=== PATIENT | male | born 1950 | race Native Hawaiian/Other Pacific Islander ===

== ENCOUNTER 2017-07-31 09:07 | Emergency (ER) | payer MEDICARE, BC ==
[~2017-07-31 09:07] MED LIST: CLAR5TAB9 PO; LEVO.075 PO; LIOT25 PO; OMEP20TA93 PO
[2017-07-31 09:10] VITALS: BP 177/83; PULSE 65; RESP 18; TEMP 98.3; O2SAT 95
[2017-07-31 09:18] VITALS: BP_SYST 135; BP_SYST 167; BP_DIAS 51; BP_DIAS 70; RESP 18
[2017-07-31] MEDS ORDERED: SODIUM CHLORIDE 0.9% FLUSH 10 ML FLUSH IVF PRN (09:30)
[2017-07-31 09:42] LABS: AUTOMATED NEUTROPHIL # 3.8 TH/MM3 (1.8-7.7); BASOPHIL # 0.1 TH/MM3 (0-0.2); BASOPHIL % 1.1 % (0.0-2.0); EOSINOPHIL # 0.3 TH/MM3 (0-0.4); EOSINOPHIL % 4.4 % (0.0-4.0); HEMATOCRIT 45.1 % (39.0-51.0); HEMOGLOBIN 15.4 GM/DL (13.0-17.0); LYMPH % 30.4 % (9.0-44.0); LYMPHOCYTE # 2.2 TH/MM3 (1.0-4.8); MEAN CELL VOLUME 96.2 FL (80.0-100.0); MEAN CORPUSCULAR HEMOGLOBIN 32.9 PG (27.0-34.0); MEAN CORPUSCULAR HGB CONC 34.2 % (32.0-36.0); MEAN PLATELET VOLUME 10.2 FL (7.0-11.0); MONO % 9.8 % (0.0-8.0); MONOCYTE # 0.7 TH/MM3 (0-0.9); NEUT % 54.3 % (16.0-70.0); PLATELET COUNT 197 TH/MM3 (150-450); RED BLOOD COUNT 4.69 MIL/MM3 (4.50-5.90); RED CELL DISTRIBUTION WIDTH 13.3 % (11.6-17.2); WHITE BLOOD COUNT 7.1 TH/MM3 (4.0-11.0)
[2017-07-31 09:54] LABS: PROTHROMBIN TIME - PATIENT 10.6 SEC (9.8-11.6)
[2017-07-31 10:01] LABS: ALBUMIN 3.7 GM/DL (3.4-5.0); ALT (GPT) 56 U/L (12-78); AST (GOT) 32 U/L (15-37); BICARBONATE 22.4 MEQ/L (21.0-32.0); BLOOD UREA NITROGEN 10 MG/DL (7-18); CALCIUM 9.1 MG/DL (8.5-10.1); CHLORIDE 107 MEQ/L (98-107); CREATININE 0.99 MG/DL (0.60-1.30); GLOMERULAR FILTRATION RATE 75 ML/MIN (>89); GLUCOSE,RANDOM 112 MG/DL (74-106); SODIUM (NA) 141 MEQ/L (136-145)
[2017-07-31 10:06] LABS: ALKALINE PHOSPHATASE 76 U/L (45-117); TOTAL BILIRUBIN ADULT 0.5 MG/DL (0.2-1.0); TOTAL PROTEIN 7.4 GM/DL (6.4-8.2); TROPONIN I LESS THAN 0.02 NG/ML (0.02-0.05)
--- NOTE | 2017-07-31 10:20 | RADRPT ---
EXAM DATE: 07/31/2017 10:08 AM EDT AGE/SEX: 66 years / Male INDICATIONS: Palpitations. Patient complains of dizziness and of being lightheaded, and also tachyca rdia x 1 week. CLINICAL DATA: This is the patient's initial encounter. Patient reports that signs and symptoms have been present for 1 week and indicates a pain score of 0/10. MEDICAL/SURGICAL HISTORY: Diverticulitis. Colon resection. Bilateral knee surgery. [place] [facility] [place]. . FINDINGS: A single AP view of the chest demonstrates the lungs to be symmetrically aerated without infiltrate. Anatomic detail is somewhat limited due to patient's body habitus, however. Heart size is prominent b ut appears to be well compensated. Degenerative spurring of the dorsal spine CONCLUSION: 1. Compensated cardiomegaly. 2. No obvious infiltrate Electronically signed by: Zoran Jimenez MD 07/31/2017 10:19 AM EDT
--- NOTE | 2017-07-31 10:38 | RADRPT ---
EXAM DATE: 07/31/2017 10:08 AM EDT AGE/SEX: 66 years / Male INDICATIONS: Neck pain, Weakness, lightheaded. CLINICAL DATA: This is the patient's initial encounter. Patient reports that signs and symptoms have been present for 1 week and indicates a pain score of 3/10. MEDICAL/SURGICAL HISTORY: Hypertension. Hypothyroidism. None. RADIATION DOSE: 24.58 CTDI (mGy) COMPARISON: No prior [facility] exams available for comparison. TECHNIQUE: Contiguous axial images were obtained using helical multirow detector technique. The vol umetric data was post-processed with multiplanar reconstruction in oblique axial, sagittal, and coron al planes. Using automated exposure control and adjustment of the mA and/or kV according to patient s ize, radiation dose was kept as low as reasonably achievable to obtain optimal diagnostic quality chencho ges. FINDINGS: Sagittal and coronal reconstruction show severe multilevel degenerative disc disease with marked loss of disc height from C2-3 through C6-7 with bone on bone articulation at C3-4 and C5-6. Slight revers al of the normal lordotic curvature. Despite degenerative changes, the spinal canal appears to be lauren quate throughout. There appear to be small cervical ribs bilaterally. C2-3: The bony spinal canal is normal in size. No evidence of disc bulge or herniation. The neural foramina are bilaterally patent. C3-4: The bony spinal canal is normal in size. No evidence of disc bulge or herniation. The neural foramina are bilaterally patent. C4-5: Uncovertebral ridging encroaches on both neural foramina, right worse than left. This may comp romise the right C5 nerve root. C5-6: Uncovertebral ridging with some encroachment on both neural foramina C6-7: The bony spinal canal is normal in size. No evidence of disc bulge or herniation. The neural foramina are bilaterally patent. C7-T1: The bony spinal canal is normal in size. No evidence of disc bulge or herniation. The neura l foramina are bilaterally patent. CONCLUSION: 1. Severe multilevel degenerative disc disease with bone on bone articulation at C3-4 and C5-6. 2. Despite degenerative changes, the spinal canal appears to be adequate throughout. 3. There is foraminal narrowing rightward at C4-5 and bilaterally at C5-6 due to uncovertebral ridgi ng. May be severe enough to compromise the right C5 and possibly both C6 nerve roots. 4. No acute fracture. There appear to be bilateral small cervical ribs. Electronically signed by: Zoran Jimenez MD 07/31/2017 10:37 AM EDT
--- NOTE | 2017-07-31 10:39 | RADRPT ---
EXAM DATE: 07/31/2017 9:55 AM EDT AGE/SEX: 66 years / Male INDICATIONS: Weakness, lightheaded. CLINICAL DATA: This is the patient's initial encounter. Patient reports that signs and symptoms have been present for 1 week and indicates a pain score of 0/10. MEDICAL/SURGICAL HISTORY: Hypertension. Hypothyroidism. None. RADIATION DOSE: 56.77 CTDI (mGy) COMPARISON: No prior [facility] exams available for comparison. TECHNIQUE: CT of the head without contrast. Using automated exposure control and adjustment of the mA and/or kV according to patient size, radiation dose was kept as low as reasonably achievable to ob tain optimal diagnostic quality images. FINDINGS: Cerebrum: The ventricles are normal for age. Mild symmetric cortical atrophy. Old lacunar type infa rcts in the inferior aspect of the basal ganglia bilaterally No evidence of midline shift, mass lesio n, hemorrhage or acute infarction. No extraaxial fluid collections are seen. Posterior Fossa: The cerebellum and brainstem are intact. The 4th ventricle is midline. The cerebe llopontine angle is unremarkable. Extracranial: The visualized portion of the orbits is intact. Skull: The calvaria is intact. No evidence of skull fracture. CONCLUSION: 1. Chronic changes with some cortical atrophy and old lacunar type infarcts in the base of the basal ganglia bilaterally. 2. Nothing acute. Electronically signed by: Zoran Jimenez MD 07/31/2017 10:38 AM EDT
[2017-07-31] MEDS ORDERED: MECLIZINE HCL 25 MG TAB PO ONE (12:00)
[2017-07-31 12:49] VITALS: O2SAT 99
--- NOTE | 2017-07-31 13:27 | RADRPT ---
EXAM DATE: 07/31/2017 1:12 PM EDT AGE/SEX: 66 years / Male INDICATIONS: Dizziness. CLINICAL DATA: This is the patient's initial encounter. Patient reports that signs and symptoms have been present for 1 week and indicates a pain score of 0/10. MEDICAL/SURGICAL HISTORY: Hypertension. Hypercholesterolemia. Hypothyroidism. . cataract COMPARISON: [facility] – [place] BRAIN W & W/O CONTRAST, 07/31/2017. . TECHNIQUE: 3D [id number] MRA was performed. Source images, multiplanar STS MIP, and 3D volum e MIP reconstructions were reviewed. FINDINGS: Anterior circulation: Internal carotid arteries have a symmetric appearance without significant narro wing. The left A1 segment is smaller than the right with an appearance suggesting a congenital basis. Anterior cerebral arteries are within normal limits. Anterior communicating artery is patent. Middle cerebral arteries are symmetric. No aneurysm or stenosis is visualized. Posterior circulation: The vertebral arteries are codominant. Basilar artery has a normal appearance. No aneurysm is present. Posterior cerebral arteries are symmetric. CONCLUSION: No intracranial vascular abnormality is identified. Electronically signed by: Stuart Hanna MD 07/31/2017 1:25 PM EDT
--- NOTE | 2017-07-31 14:01 | RADRPT ---
EXAM DATE: 07/31/2017 1:25 PM EDT AGE/SEX: 66 years / Male INDICATIONS: Dizziness. CLINICAL DATA: This is the patient's initial encounter. Patient reports that signs and symptoms have been present for 1 week and indicates a pain score of 0/10. MEDICAL/SURGICAL HISTORY: Hypertension. Hypothyroidism. Hypercholesterolemia. . cataract COMPARISON: No prior [facility] exams available for comparison. TECHNIQUE: Multiplanar, multisequence examination of the brain was performed without and with 19 ml O mniscan (gadodiamide) contrast as a single exam dose. FINDINGS: Cerebrum: Small chronic lacunar infarctions involving the basal ganglia bilaterally. The ventricles are normal for age. No evidence of midline shift, mass lesion, hemorrhage or acute infarction. No e xtraaxial fluid collections are seen. The pituitary gland and suprasellar cistern are normal in conf iguration. White Matter: No significant signal abnormalities are seen in the white matter. Posterior Fossa: The cerebellum and brainstem are intact. The 4th ventricle is midline. The cerebel lopontine angle is unremarkable. The cerebellar tonsils are normal in position. Diffusion Imaging: No focal areas of restricted diffusion are seen. No evidence of acute infarction . Extracranial: The visualized portions of the orbits and paranasal sinuses are unremarkable. Post Contrast: No abnormal areas of parenchymal or dural enhancement. No evidence of blood-brain ba rrier breakdown. CONCLUSION: 1. No acute intracranial abnormality. 2. Chronic lacunar infarctions involving the basal ganglia bilaterally. Electronically signed by: Daryl Padilla MD 07/31/2017 2:00 PM EDT
[2017-07-31] MEDS ORDERED: GADODIAMIDE PF 287 MG/ML 20 ML VIAL (for RAD MRI) IVCONTRAST ONE (14:03)
--- NOTE | 2017-07-31 14:25 | PD ---
HPI Chief Complaint: Cardiac Complaint Time Seen by Provider: 09:23 Travel History International Travel<30 days: No Contact w/Intl Traveler<30days: No Traveled to known affect area: No History of Present Illness HPI Patient is a 66 year old male who comes in complaining of dizziness and palpitations. He says this has been episodic over the past few weeks. He says it started while he was in the car once. However, it came on again last night. He says it does not seem to be related to exertion. He has not had any chest pain. He denies any shortness of breath. He says that he took some Valium last night because he thought he may be having a panic attack. However, he says this has not really helped. He denies fever or chills. He denies headache. He says he has had some blurred vision occasionally. Severity is mild to moderate. PFSH Past Medical History Arthritis: Yes Autoimmune Disease: No Heart Rhythm Problems: No Cancer: No Cardiovascular Problems: Yes Chest Pain: No Congestive Heart Failure: No Diabetes: No Diverticulitis: Yes Endocrine: Yes Gastrointestinal Disorders: Yes (DIVERTICULITIS) Genitourinary: No Hypertension: Yes ("EPISODIC") Immune Disorder: No Musculoskeletal: No Neurologic: No Psychiatric: No Reproductive: No Respiratory: No Sleep Apnea: Yes (CPAP) Thyroid Disease: Yes (HYPO) Past Surgical History Abdominal Surgery: Yes Social History Alcohol Use: Yes (RARELY) Tobacco Use: No Substance Use: No Allergies-Medications (Allergen,Severity, Reaction): Coded Allergies: No Known Allergies (Unverified Allergy, Unknown, 07/31/17) Reported Meds & Prescriptions Reported Meds & Active Scripts Active Reported Claritin-D 12 HR (Loratadine-Pseudoephedrine 12 HR) 5-120 Mg Tab 1 Tab PO BID Omeprazole 20 Mg Tab 20 Mg PO DAILY Cytomel (Liothyronine Sodium) 25 Mcg Tab 5 Mcg PO DAILY Synthroid (Levothyroxine Sodium) 75 Mcg Tab 75 Mcg PO DAILY Review of Systems Except as stated in HPI: all other systems reviewed are Neg General / Constitutional: No: Fever, Chills Eyes: Positive: Blurred Vision HENT: Positive: Lightheadedness, No: Headaches Cardiovascular: Positive: Palpitations, No: Chest Pain or Discomfort Respiratory: No: Shortness of Breath Gastrointestinal: No: Nausea, Vomiting Musculoskeletal: No: Myalgias Skin: No Rash, No Change in Pigmentation Neurologic: Positive: Dizziness, No: Weakness, Syncope Physical Exam Narrative GENERAL: Awake and alert, in no acute distress. SKIN: Focused skin assessment warm/dry. No wounds or signs of infection. HEAD: Atraumatic. Normocephalic. EYES: Pupils equal and round and reactive. No scleral icterus. EOMI. No nystagmus. ENT: Mucous membranes pink and moist. NECK: Trachea midline. No JVD. CARDIOVASCULAR: Regular rate and rhythm. No murmur appreciated. RESPIRATORY: No accessory muscle use. Clear to auscultation. Breath sounds equal bilaterally. GASTROINTESTINAL: Abdomen soft, non-tender, nondistended. MUSCULOSKELETAL: No obvious deformities. No clubbing. No cyanosis. No edema. NEUROLOGICAL: Awake and alert. No obvious cranial nerve deficits. Motor grossly within normal limits. Normal speech. PSYCHIATRIC: Appropriate mood and affect; insight and judgment normal. Data Data Last Documented VS Vital Signs Date Time Temp Pulse Resp B/P (MAP) Pulse Ox O2 Delivery O2 Flow Rate FiO2 07/31/17 12:49 99 Room Air 07/31/17 09:18 72 18 71 18 07/31/17 09:10 98.3 Orders Orders Complete Blood Count With Diff (07/31/17 09:23) Comprehensive Metabolic Panel (07/31/17:23) B-Type Natriuretic Peptide (07/31/17 09:23) Ckmb (Isoenzyme) Profile (07/31/17 09:23) Troponin I (07/31/17 09:23) Act Partial Throm Time (Ptt) (07/31/17:23) Prothrombin Time / Inr (Pt) (07/31/17 09:23) Chest, Single Ap (07/31/17 09:23) Ct Brain W/O Iv Contrast(Rout) (07/31/17 09:23) Ecg Monitoring (07/31/17 09:23) Iv Access Insert/Monitor (07/31/17 09:23) Oximetry (07/31/17 09:23) Sodium Chloride 0.9% Flush (Ns Flush) (07/31/17 09:30) Ct Cerv Spine W/O Contrast (07/31/17 ) CKMB (07/31/17 09:32) CKMB% (07/31/17 09:32) Electrocardiogram (07/31/17 07:05) Mri Brain W&W/O Contrast (07/31/17 ) Mra Brain W/O Contrast (Cow) (07/31/17 ) Consult Neurology (07/31/17 ) Meclizine (Antivert) (07/31/17 12:00) (Hub Use Only)Inp Phy Cons/Ref (07/31/17 ) Gadodiamide Pf Inj (Omniscan Pf Inj) (07/31/17 14:03) Labs Laboratory Tests Test 07/31/17 09:32 White Blood Count 7.1 TH/MM3 Red Blood Count 4.69 MIL/MM3 Hemoglobin 15.4 GM/DL Hematocrit 45.1 % Mean Corpuscular Volume 96.2 FL Mean Corpuscular Hemoglobin 32.9 PG Mean Corpuscular Hemoglobin Concent 34.2 % Red Cell Distribution Width 13.3 % Platelet Count 197 TH/MM3 Mean Platelet Volume 10.2 FL Neutrophils (%) (Auto) 54.3 % Lymphocytes (%) (Auto) 30.4 % Monocytes (%) (Auto) 9.8 % Eosinophils (%) (Auto) 4.4 % Basophils (%) (Auto) 1.1 % Neutrophils # (Auto) 3.8 TH/MM3 Lymphocytes # (Auto) 2.2 TH/MM3 Monocytes # (Auto) 0.7 TH/MM3 Eosinophils # (Auto) 0.3 TH/MM3 Basophils # (Auto) 0.1 TH/MM3 CBC Comment DIFF FINAL Differential Comment Prothrombin Time 10.6 SEC Prothromb Time International Ratio 1.0 RATIO Activated Partial Thromboplast Time 25.7 SEC Blood Urea Nitrogen 10 MG/DL Creatinine 0.99 MG/DL Random Glucose 112 MG/DL Total Protein 7.4 GM/DL Albumin 3.7 GM/DL Calcium Level 9.1 MG/DL Alkaline Phosphatase 76 U/L Aspartate Amino Transf (AST/SGOT) 32 U/L Alanine Aminotransferase (ALT/SGPT) 56 U/L Total Bilirubin 0.5 MG/DL Sodium Level 141 MEQ/L Potassium Level 4.0 MEQ/L Chloride Level 107 MEQ/L Carbon Dioxide Level 22.4 MEQ/L Anion Gap 12 MEQ/L Estimat Glomerular Filtration Rate 75 ML/MIN Total Creatine Kinase 150 U/L Creatine Kinase MB 1.0 NG/ML Troponin I LESS THAN 0.02 NG/ML B-Type Natriuretic Peptide 22 PG/ML MDM Medical Decision Making Medical Screen Exam Complete: Yes Emergency Medical Condition: Yes Medical Record Reviewed: Yes Interpretation(s) ECG shows NSR at a rate of 70, no ST elevation or depression, normal intervals Differential Diagnosis paroxysmal afib vs anxiety vs orthostasis vs dehydration vs electrolyte abnormalities Narrative Course Patient is a 66 year old male who comes in complaining of palpitations and dizziness. Diagnosis Primary Impression: Dizziness Additional Impression: Palpitations Patient Instructions: Dizziness (ED), General Instructions, Heart Palpitations (ED) Additional Instructions: Follow up with Dr. Everett as scheduled. Take Tylenol or Ibuprofen as needed for headache. Return to the ED as needed for any worsening symptoms. Disposition: 01 DISCHARGE HOME Condition: Stable Tomeka Katz MD Jul 31, 2017 14:25
--- NOTE | 2017-07-31 15:11 | MB ---
cc: Gideon Meehan MD, PhD DATE: 07/31/2017 REASON FOR CONSULTATION: Dizziness. 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 He states for the past week he has been having episodes where he feels a sense of lightheadedness, severe faintness as though he might pass out and then he gets a bitemporal headache, blurred vision. He first began to experience while he was driving a car. He did not actually pass out, but he felt he might. He did not have any chest pain. He did have some palpitations. Apparently, he states that he has had these episodes lying down as well. Here in the ER, was found to have orthostatic hypotension with a drop in systolic pressure by 30 points. PAST MEDICAL HISTORY: He has a history of cervical and lumbar spondylosis, sleep apnea with CPAP, hypothyroidism, diverticulosis, left ventricular diastolic dysfunction. MEDICATIONS AT HOME: He is on Cytomel, omeprazole, Claritin, Synthroid. NEUROLOGIC EXAMINATION: VITAL SIGNS: His supine blood pressure is 167/70, standing 135/51, pulse 71 and regular, respirations 18, temperature 98.3 degrees. Higher cortical functions are normal. Cranial nerves: The pupils are equal. The extraocular movements are normal. I do not see any nystagmus. There is no facial asymmetry. Motor: Exam reveals no focal weakness. He has no drift. Cerebellar testing is normal with no dysmetria. IMAGING STUDIES: His CT of the brain is normal except for some mild atrophy and old lacunar type strokes in the basal ganglia. Nothing acute. His MRI of the brain shows chronic lacunar infarctions basal ganglia bilaterally. No acute change. The posterior circulation is normal. MRA of the brain is likewise normal. LABORATORY DATA: White count 7100, hemoglobin 15.4, hematocrit 45%, platelet count 197,000. PT 10.6, INR 1, APTT 25.7. Sodium is 141, potassium 4, chloride 107, CO2 is 22.4. The BUN is 10, creatinine 0.99, GFR 75, glucose 112. AST 32, ALT 56, alkaline phosphatase 76. IMPRESSION: Episodes he is having are probably presyncope from orthostatic hypotension. PLAN: I reviewed the MRI of the brain. There is no evidence of any acute infarction. In addition, the MRA of the basilar artery is normal. I do not think this is a vertebrobasilar event. Probably related to orthostatic hypotension. Recommend a cardiology evaluation. The patient does have a cane flume watchman with Dr. Jose Everett. If no other etiology is identified, consider a 24-hour urine for catecholamine and 5 HIAA to rule out the remote chance of pheochromocytoma or carcinoid syndrome. Thank you for asking me to see this pleasant patient. Gideon Meehan MD, PhD CARY/TL , 02:49 PM , 03:10 PM
--- NOTE | 2017-08-01 16:03 | EKG ---
Date Performed: 07/31/2017 Time Performed: 07:05:30 PTAGE: 66 years EKG: Sinus Rythm Normal ECG Since the PREVIOUS TRACING , no significant change noted PREVIOUS TRACIN02/14/2011 @13.32 DOCTOR: Claire Draper Interpretating Date/Time 08/01/2017 16:01:54
== END 2017-07-31 15:28 | disposition home or self-care (01) ==
LOC: NEPE 09:07
DX: R42 Dizziness and giddiness (principal); R00.2 Palpitations; E03.9 Hypothyroidism, unspecified; H53.8 Other visual disturbances; Z79.899 Other long term (current) drug therapy
CPT/HCPCS: 70450; 70544; 70553; 71045; 72125; 80053; 82550; 82552; 83880; 84484; 85025; 85610; 85730; 93005; 99285; A9579